=== PATIENT | female | born 1965 | race Caucasian/White ===

== ENCOUNTER 2016-04-24 02:00 | Emergency (ER) | payer OTHER ==
[2016-04-24 03:37] LABS: APPEARANCE,URINE SLIGHTLY-CLOUDY; BILIRUBIN,URINE NEGATIVE (NEGATIVE); GLUCOSE, URINE NEGATIVE (NEGATIVE); KETONES,URINE NEGATIVE (NEGATIVE); LEUKOCYTE ESTERASE,URINE LARGE (NEGATIVE); NITRITE,URINE NEGATIVE (NEGATIVE); PROTEIN,URINE NEGATIVE (NEGATIVE); URINE SPECIFIC GRAVITY 1.008
--- NOTE | 2016-04-24 04:36 | ER Document Report ---
ED GI/ - General Chief Complaint: Pain With Urination Stated Complaint: PAIN WITH URINATION Mode of Arrival: Ambulatory Information source: Patient Notes: 51-year-old female presents to the emergency department complaining of persistent UTI symptoms. Patient reports saw her primary care provider last week due to dysuria and lower back pain and was diagnosed with a UTI and prescribed course of Macrobid which she reports has been taking over the past week. States symptoms have not improved. Patient also complains of intermittently persistent right arm pain. 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 Denies recent injury, warmth or redness to hand/arm, hematuria, vaginal bleeding or discharge, nausea or vomiting. TRAVEL OUTSIDE OF THE [place] IN LAST 30 DAYS: No - HPI Patient complains to provider of: Dysuria Onset: Last week Timing/Duration: Persistent Quality of pain: Burning Severity at maximum: Moderate Severity in ED: Mild Pain Level: 2 Similar symptoms previously: Yes Recently seen / treated by doctor: Yes - Related Data Allergies/Adverse Reactions: Sulfa (Sulfonamide Antibiotics) Allergy (Verified 04/24/16 02:14) Past Medical History - General Information source: Patient - Social History Smoking Status: Never Smoker Chew tobacco use (# tins/day): No Frequency of alcohol use: None Drug Abuse: None Lives with: Family Family History: Reviewed & Not Pertinent Patient has suicidal ideation: No Patient has homicidal ideation: No - Medical History Medical History: Negative Renal/ Medical History: Denies: Hx Peritoneal Dialysis Surgical Hx: Negative - Immunizations Hx Diphtheria, Pertussis, Tetanus Vaccination: Yes Review of Systems - Review of Systems Constitutional: No symptoms reported EENT: No symptoms reported Cardiovascular: No symptoms reported Respiratory: No symptoms reported Gastrointestinal: No symptoms reported Genitourinary: See HPI Female Genitourinary: No symptoms reported Musculoskeletal: See HPI Skin: No symptoms reported Hematologic/Lymphatic: No symptoms reported Neurological/Psychological: No symptoms reported -: Yes All other systems reviewed and negative Physical Exam - Vital signs Vitals: Temp Pulse Resp BP Pulse Ox 98.0 F 92 16 131/83 H 97 04/24/16 02:07 04/24/16 02:07 04/24/16 02:07 04/24/16 02:07 04/24/16 02:07 Interpretation: Normal - General General appearance: Appears well, Alert In distress: None - HEENT Head: Normocephalic, Atraumatic Eyes: Normal Pupils: PERRL - Respiratory Respiratory status: No respiratory distress Chest status: Nontender Breath sounds: Normal Chest palpation: Normal - Cardiovascular Rhythm: Regular Heart sounds: Normal auscultation Murmur: No Pulses: Normal: Radial Normal capillary refill: Yes - Abdominal Inspection: Normal Distension: No distension Bowel sounds: Normal Tenderness: Nontender. No: Tender, McBurney's point, Rodriges's sign, Guarding, Rebound, Other Organomegaly: No organomegaly - Back Back: Normal, Nontender. No: Tender, Deformity/step-off, CVA tenderness, Vertebra tenderness, Scars, Scoliosis, Wounds, Other - Extremities General upper extremity: Normal inspection, Nontender, Normal color, Normal ROM , Normal strength, Normal temperature. No: Tender, Edema General lower extremity: Normal inspection, Nontender, Normal color, Normal ROM , Normal strength, Normal temperature, Normal weight bearing. No: Tender, Edema Arm: Normal, Nontender Elbow: Normal, Nontender Forearm: Normal, Nontender Wrist: Normal. No: Nontender, Tender, Abrasion, Axial load of thumb pain, Deformity, Dislocation, Ecchymosis, Instability, Laceration, Limited ROM, Navicular tenderness Hand: Normal. No: Nontender, Tender, Abrasion, Deformity, Dislocation, Ecchymosis, Instability, Laceration, Nail injury, Swelling, Tendon deficit, Other - Neurological Neuro grossly intact: Yes Cognition: Normal Orientation: AAOx4 [place] Coma Scale Eye Opening: Spontaneous Verena Coma Scale Verbal: Oriented Verena Coma Scale Motor: Obeys Commands [place] Coma Scale Total: 15 Speech: Normal Motor strength normal: LUE, RUE, LLE, RLE Sensory: Normal - Psychological Associated symptoms: Normal affect, Normal mood - Skin Skin Temperature: Warm Skin Moisture: Dry Skin Color: Normal Course - Re-evaluation Re-evalutation: 04/24/16 05:10 Patient hemodynamically stable, in no distress, afebrile, nontoxic, and appears well-hydrated. Large leukocyte Estrace and wbc's on UA. Urine culture obtained. Will prescribe course of cephalexin pending urine cultures. Patient appears stable for discharge and agrees with home care, follow-up with PCP, and ED return precautions. - Vital Signs Vital signs: Temp Pulse Resp BP Pulse Ox 97.7 F 86 16 138/55 H 99 04/24/16 04:59 04/24/16 04:59 04/24/16 04:59 04/24/16 04:59 04/24/16 04:59 - Laboratory Laboratory results interpreted by me: 04/24/16 03:17 Urine Urobilinogen 4.0 H Ur Leukocyte Esterase LARGE H Discharge - Discharge Clinical Impression: Overuse syndrome UTI (urinary tract infection) Qualifiers: Urinary tract infection type: site unspecified Hematuria presence: without hematuria Qualified Code(s): N39.0 - Urinary tract infection, site not specified Condition: Stable Disposition: HOME, SELF-CARE Instructions: Urinary Tract Infection ([facility]), Cephalexin ([facility]), Urinary Anesthetic Agent ([facility]), Anti-Inflammatory Medication ([facility]), Overuse Syndrome ( [facility]), Ice & Elevation ([facility]), Warm Packs ([facility]) Additional Instructions: A culture of your urine has been obtained. If bacterial growth is noted that requires a change in your prescribed antibiotic regimen you will be contacted within two days with instructions on treatment. If you do not receive a call, please call back for results. Drink plenty of fluids, at least 2 to 3 liters of water per day. Follow-up with your primary care provider in 1-2 days. Return to the Emergency Department for any worsening symptoms or concerns. Prescriptions: Cephalexin Monohydrate [Keflex 500 mg Capsule] 500 mg PO Q6H 7 Days Naproxen [Naprosyn 375 Mg Tablet] 375 mg PO BIDP PRN #10 tablet PRN Reason: Phenazopyridine HCl [Pyridium 200 mg Tablet] 200 mg PO BIDP PRN #10 tablet PRN Reason: Forms: Elevated Blood Pressure Referrals: INA KHAN MD [ACTIVE STAFF] - Follow up in 3-5 days
[2016-04-24 05:03] VITALS: BP 138/55
== END 2016-04-24 04:59 | disposition home or self-care (01) ==
LOC: ER 02:00
DX: N39.0 Urinary tract infection, site not specified (principal); M70.831 Other soft tissue disorders related to use, overuse and pressure, right forearm; Z88.2 Allergy status to sulfonamides
CPT/HCPCS: 81001; 87086; 87088; 87186; 99283

== ENCOUNTER → 2017-04-19 | Outpatient (CLI) | payer OTHER | LOC: LAB 18:30 | PROVIDERS: ATTEND Nurse Practitioner Acute Care | DX: R30.0 Dysuria (principal) | CPT/HCPCS: 87086 ==

== ENCOUNTER 2017-04-20 09:07 | Emergency (ER) | payer OTHER ==
[2017-04-20] MEDS ORDERED: RINGERS SOLUTION,LACTATED 1,000 ML IV ONE (10:19)
[2017-04-20] MEDS ORDERED: KETOROLAC TROMETHAMINE INJ/PF 30 MG/1 ML SDV IV ONE (10:20)
[2017-04-20] MEDS ORDERED: CEFTRIAXONE 1 GM/D5W RTU 1 GM/50 ML RTUPB IV ONE (10:20)
--- NOTE | 2017-04-20 10:20 | ER Document Report ---
ED General - General Chief Complaint: Pain All Over Stated Complaint: URINARY PROBLEMS Time Seen by Provider: 04/20/17 09:44 Notes: Patient states that over the last couple days she is felt generally ill. Body aches all over. Increase frequency of urination. Went to urgent care yesterday. Had already started on some Azo at home for possible UTI. Urinalysis was suspicious for UTI. Was started on Macrobid and Pyridium. Patient states that she continues to feel ill and not getting better. Describing chills and body aches all over. Weakness in her legs, also complaining of pain that radiates up into her jaw. No vomiting. States that she never gets sick and states that she does not feel right. Is concerned because father has history of severe coronary artery disease. TRAVEL OUTSIDE OF THE [place] IN LAST 30 DAYS: No - HPI Onset: Yesterday Onset/Duration: Worse - Related Data Allergies/Adverse Reactions: Sulfa (Sulfonamide Antibiotics) Allergy (Verified 04/24/16 02:14) Past Medical History - General Information source: Patient - Social History Smoking Status: Never Smoker Frequency of alcohol use: None Drug Abuse: None Lives with: Spouse/Significant other Family History: Reviewed & Not Pertinent - Past Medical History Cardiac Medical History: Reports: None Pulmonary Medical History: Reports: None Neurological Medical History: Reports: None Endocrine Medical History: Reports: None Renal/ Medical History: Reports: None. Denies: Hx Peritoneal Dialysis Malignancy Medical History: Reports: None GI Medical History: Reports: None Musculoskeltal Medical History: Reports None Skin Medical History: Reports None Psychiatric Medical History: Reports: None Infectious Medical History: Reports: None Surgical Hx: Other - , fibroid removal - Immunizations Hx Diphtheria, Pertussis, Tetanus Vaccination: Yes Review of Systems - Review of Systems Constitutional: Chills, Malaise, Weakness EENT: Other - Complaining of pain in the right jaw. denies: Eye pain, Ear pain , Mouth pain Cardiovascular: Heart racing. denies: Chest pain, Palpitations Respiratory: denies: Cough, Hurts to breathe, Wheezing Gastrointestinal: Abdominal pain. denies: Diarrhea, Nausea, Vomiting Genitourinary: Burning, Dysuria, Frequency, Urgency. denies: Discharge Female Genitourinary: denies: Vaginal discharge, Vaginal bleeding, Vaginal odor Musculoskeletal: Muscle pain. denies: Back pain, Joint pain, Muscle stiffness Skin: denies: Lesions, Lumps, Rash Hematologic/Lymphatic: denies: Anemia, Blood clots, Easy bleeding, Easy bruising Neurological/Psychological: denies: Confusion, Dementia, Depression, Anxiety, Hallucinations, Sensory change, Weakness, Seizure, Numbness Physical Exam - Vital signs Vitals: Temp Pulse Resp BP Pulse Ox 98.4 F 104 H 16 134/77 H 95 04/20/17 09:18 04/20/17 09:18 04/20/17 09:18 04/20/17 09:18 04/20/17 09:18 Interpretation: Tachycardic - General General appearance: Appears well, Alert - HEENT Head: Normocephalic, Atraumatic Eyes: Normal Pupils: PERRL - Respiratory Respiratory status: No respiratory distress Chest status: Nontender Breath sounds: Normal Chest palpation: Normal - Cardiovascular Rhythm: Tachycardia Heart sounds: Normal auscultation Murmur: No - Abdominal Inspection: Normal Distension: No distension Bowel sounds: Normal Tenderness: Nontender. No: Guarding, Rebound Organomegaly: No organomegaly - Back Back: Normal, Nontender - Extremities General upper extremity: Normal inspection, Nontender, Normal color, Normal ROM , Normal temperature General lower extremity: Normal inspection, Nontender, Normal color, Normal ROM , Normal temperature, Normal weight bearing. No: Jens's sign - Neurological Neuro grossly intact: Yes Cognition: Normal Orientation: AAOx4 [place] Coma Scale Eye Opening: Spontaneous [place] Coma Scale Verbal: Oriented [place] Coma Scale Motor: Obeys Commands Ve[place] Coma Scale Total: 15 Speech: Normal Motor strength normal: LUE, RUE, LLE, RLE Sensory: Normal - Psychological Associated symptoms: Normal affect, Normal mood - Skin Skin Temperature: Warm Skin Moisture: Dry Skin Color: Normal Course - Re-evaluation Re-evalutation: 04/20/17 10:27 This time based on her very broad presentation symptoms we will get some basic labs. Anytime someone is complaining of some pain in the jaw feel compelled to get an EKG and cardiac especially in females over the age of 50. Will give some IV fluids, Toradol and some Rocephin. Hopefully this will turn things around if not we will readdress. 04/20/17 12:03 Patient with evidence of UTI. Fluids, Toradol, Rocephin given. EKG obtained and troponin negative. At this time vital signs are normal. Patient feeling much better. Like to be able to discharge shortly. 04/20/17 12:11 04/20/17 10:54 04/20/17 10:54 MCV 85 fl (80-97) 04/20/17 10:54 MCH 27.8 pg (27.0-33.4) 04/20/17 10:54 MCHC 33.0 g/dL (32.0-36.0) 04/20/17 10:54 RDW 13.3 % (11.5-14.0) 04/20/17 10:54 Seg Neutrophils % Not Reportable 04/20/17 10:54 Lymphocytes % Not Reportable 04/20/17 10:54 Monocytes % Not Reportable 04/20/17 10:54 Eosinophils % Not Reportable 04/20/17 10:54 Basophils % Not Reportable 04/20/17 10:54 Absolute Neutrophils Not Reportable 04/20/17 10:54 Absolute Lymphocytes Not Reportable 04/20/17 10:54 Absolute Monocytes Not Reportable 04/20/17 10:54 Absolute Eosinophils Not Reportable 04/20/17 10:54 Absolute Basophils Not Reportable 04/20/17 10:54 Chloride 105 mmol/L (98-107) 04/20/17 10:54 Carbon Dioxide 25 mmol/L (22-30) 04/20/17 10:54 Anion Gap 11 (5-19) 04/20/17 10:54 Est GFR ( Amer) > 60 (>60) 04/20/17 10:54 Est GFR (Non-Af Amer) > 60 (>60) 04/20/17 10:54 Glucose 109 mg/dL (75-110) 04/20/17 10:54 Calcium 9.8 mg/dL (8.4-10.2) 04/20/17 10:54 Total Bilirubin 0.6 mg/dL (0.2-1.3) 04/20/17 10:54 AST 37 U/L (14-36) H 04/20/17 10:54 ALT 66 U/L (9-52) H 04/20/17 10:54 Alkaline Phosphatase 110 U/L (38-126) 04/20/17 10:54 Total Protein 6.4 g/dL (6.3-8.2) 04/20/17 10:54 Albumin 3.9 g/dL (3.5-5.0) 04/20/17 10:54 Urine Color YELLOW 04/20/17 09:51 Urine Appearance SLIGHTLY-CLOUDY 04/20/17 09:51 Urine pH 7.0 (5.0-9.0) 04/20/17 09:51 Ur Specific [place] 1.017 04/20/17 09:51 Urine Protein NEGATIVE mg/dL (NEGATIVE) 04/20/17 09:51 Urine Glucose (UA) NEGATIVE mg/dL (NEGATIVE) 04/20/17 09:51 Urine Ketones NEGATIVE mg/dL (NEGATIVE) 04/20/17 09:51 Urine Blood NEGATIVE (NEGATIVE) 04/20/17 09:51 Urine Nitrite NEGATIVE (NEGATIVE) 04/20/17 09:51 Ur Leukocyte Esterase MODERATE (NEGATIVE) H 04/20/17 09:51 Urine WBC (Auto) 27 /HPF 04/20/17 09:51 Urine RBC (Auto) 1 /HPF 04/20/17 09:51 04/20/17 10:54 Troponin I < 0.012 - Vital Signs Vital signs: Temp Pulse Resp BP Pulse Ox 98.4 F 104 H 16 134/77 H 95 04/20/17 09:18 04/20/17 09:18 04/20/17 09:18 04/20/17 09:18 04/20/17 09:18 - Laboratory Result Diagrams: 04/20/17 10:54 04/20/17 10:54 Laboratory results interpreted by me: 04/20/17 04/20/17 04/20/17 09:51 10:54 10:54 WBC 11.9 H Seg Neuts % (Manual) 91 H Band Neutrophils % 1 L Lymphocytes % (Manual) 4 L Monocytes % (Manual) 1 L Metamyelocytes % 1 H Abs Neuts (Manual) 11.1 H AST 37 H ALT 66 H Urine Urobilinogen 2.0 H Ur Leukocyte Esterase MODERATE H Urine Ascorbic Acid 40 H - EKG Interpretation by Wy EKG shows normal: [place], Intervals, QRS Complexes, ST-T Waves Rate: Tachycardia Discharge - Discharge Clinical Impression: Urinary tract infection Qualifiers: Urinary tract infection type: site unspecified Hematuria presence: without hematuria Qualified Code(s): N39.0 - Urinary tract infection, site not specified Condition: Good Disposition: HOME, SELF-CARE Instructions: Urinary Tract Infection ([facility]) Additional Instructions: In the event that your symptoms are getting worse over the next 12-24 hours please return to emergency department for repeat evaluation. Prescriptions: Cefdinir [Omnicef 300 mg Capsule] 1 cap PO BID 7 Days #14 capsule Forms: Return to Work
[2017-04-20 10:28] LABS: APPEARANCE,URINE SLIGHTLY-CLOUDY; BILIRUBIN,URINE NEGATIVE (NEGATIVE); COLOR,URINE YELLOW; GLUCOSE, URINE NEGATIVE (NEGATIVE); KETONES,URINE NEGATIVE (NEGATIVE); LEUKOCYTE ESTERASE,URINE MODERATE (NEGATIVE); NITRITE,URINE NEGATIVE (NEGATIVE); PROTEIN,URINE NEGATIVE (NEGATIVE); URINE SPECIFIC GRAVITY 1.017
[2017-04-20] MEDS ORDERED: CEFTRIAXONE INJ 1000 MG VIAL IV ONE (11:00)
[2017-04-20 11:13] LABS: HEMATOCRIT 38.7 % (36.0-47.0); HEMOGLOBIN 12.8 g/dL (12.0-15.5); MEAN CORPUSCULAR HEMOGLOBIN 27.8 pg (27.0-33.4); MEAN CORPUSCULAR VOLUME 85 fl (80-97); PLATELET COUNT 248 10^3/uL (150-450); RED BLOOD COUNT 4.58 10^6/uL (3.72-5.28); RED CELL DISTRIBUTION WIDTH 13.3 % (11.5-14.0); WHITE BLOOD COUNT 11.9 10^3/uL (4.0-10.5)
[2017-04-20 11:29] LABS: ALANINE AMINOTRANSFERASE 66 U/L (9-52); ALBUMIN 3.9 g/dL (3.5-5.0); ALKALINE PHOSPHATASE 110 U/L (38-126); ANION GAP 11 (5-19); ASPARTATE AMINO TRANSFERASE 37 U/L (14-36); BILIRUBIN,DIRECT 0.2 mg/dL (0.0-0.4); BILIRUBIN,TOTAL 0.6 mg/dL (0.2-1.3); BLOOD UREA NITROGEN 10 mg/dL (7-20); CALCIUM 9.8 mg/dL (8.4-10.2); CARBON DIOXIDE 25 mmol/L (22-30); CHLORIDE 105 mmol/L (98-107); GLUCOSE 109 mg/dL (75-110); POTASSIUM 4.1 mmol/L (3.6-5.0); SODIUM 140.5 mmol/L (137-145); TOTAL PROTEIN 6.4 g/dL (6.3-8.2)
[2017-04-20 11:35] LABS: ABSOLUTE LYMPHOCYTES# (MANUAL) 0.5 10^3/uL (0.5-4.7); ABSOLUTE MONOCYTES # (MANUAL) 0.1 10^3/uL (0.1-1.4); ABSOLUTE NEUTROPHILS# (MANUAL) 11.1 10^3/uL (1.7-8.2); BAND NEUTROPHILS % (MANUAL) 1 % (3-5); BASOPHILS % (MANUAL) 1 % (0-2); EOSINOPHILS % (MANUAL) 1 % (0-6); LYMPHOCYTES % (MANUAL) 4 % (13-45); METAMYELOCYTES % (MANUAL) 1 % (0); MONOCYTES % (MANUAL) 1 % (3-13); PLATELET COMMENT ADEQUATE; POLYCHROMASIA SLIGHT; SEGMENTED NEUTROPHILS % (MAN) 91 % (42-78); TOTAL CELLS COUNTED 100; TOXIC GRANULATION SLIGHT; TOXIC VACUOLATION PRESENT
[2017-04-20 12:44] VITALS: BP 139/68
--- NOTE | 2017-04-20 14:36 | EKG REPORT ---
SEVERITY:- ABNORMAL ECG - SINUS TACHYCARDIA BORDERLINE T ABNORMALITIES, ANT-LAT LEADS : Confirmed by: Ramu Torrez MD 20-Apr-2017 14:35:33
== END 2017-04-20 13:00 | disposition home or self-care (01) ==
LOC: ER 09:07
DX: N39.0 Urinary tract infection, site not specified (principal); M79.1 Myalgia; R53.81 Other malaise; Z88.2 Allergy status to sulfonamides
CPT/HCPCS: 93005; 99283; 96375; 96365; 96368; 36415; 87086; 85025; 87088; 80053; 81001; 84484; 93010; J1885; J0696; J7120

== ENCOUNTER 2019-05-13 23:13 | Emergency (ER) | payer OTHER ==
[2019-05-14] MEDS ORDERED: LIDOCAINE 2% VISCOUS SOLN 15 ML UDCUP PO ONE (00:04)
[2019-05-14] MEDS ORDERED: METOCLOPRAMIDE HCL ORAL SOLN 10 MG/10 ML UDCUP PO ONE (00:04)
[2019-05-14] MEDS ORDERED: MAG HYDROX/AL HYDROX/SIMETH SUSP 30 ML UDCUP PO ONE (00:04)
--- NOTE | 2019-05-14 00:26 | ER Document Report ---
ED General - General Stated Complaint: DIFFICULTY BREATHING Time Seen by Provider: 05/13/19 23:49 Notes: Patient is a 54-year-old female that comes to the emergency department for chief complaint of cough for the past 3 days, vague shortness of breath, chills and body aches. She also states that she has had frequent heartburn for the past 1.5 weeks and has generally felt rundown for 1.5 weeks. She states she had a maximum recorded temperature of 100.2 at home. She has had the influenza vaccine. She denies history of asthma, COPD, or any respiratory history. She denies any cardiac history or specific chest pain. She states that she wonders if the shortness of breath she is feeling is because of her bad heartburn. She denies abdominal pain, vomiting. She saw her primary care provider, had Carafate added to her omeprazole. She denies any significant improvement. She states she told her children how she was feeling and they told her to come in to get tested and checked out. She denies current shortness of breath. Patient denies any medications other than her omeprazole and Carafate. She denies any other medical history. TRAVEL OUTSIDE OF THE [place] IN LAST 30 DAYS: No - Related Data Allergies/Adverse Reactions: Sulfa (Sulfonamide Antibiotics) Allergy (Verified 04/24/16 02:14) Past Medical History - General Information source: Patient - Social History Smoking Status: Never Smoker Drug Abuse: None Lives with: Family Family History: Reviewed & Not Pertinent Endocrine Medical History: Denies: Hx Diabetes Mellitus Type 2 - "Borderline" but not treated Renal/ Medical History: Denies: Hx Peritoneal Dialysis GI Medical History: Reports: Hx Gastroesophageal Reflux Disease - Immunizations Immunizations up to date: Yes Hx Diphtheria, Pertussis, Tetanus Vaccination: Yes Review of Systems - Review of Systems Constitutional: See HPI EENT: No symptoms reported Cardiovascular: See HPI Respiratory: See HPI Gastrointestinal: See HPI Genitourinary: No symptoms reported Female Genitourinary: No symptoms reported Musculoskeletal: No symptoms reported Skin: No symptoms reported Hematologic/Lymphatic: No symptoms reported Neurological/Psychological: No symptoms reported Physical Exam - Vital signs Vitals: Resp Pulse Ox 15 95 05/13/19 23:39 05/13/19 23:39 - Notes Notes: GENERAL: Alert, interacts well. HEAD: Normocephalic, atraumatic. EYES: Pupils equal, round, and reactive to light. Extraocular movements intact. ENT: Oral mucosa moist, tongue midline. Oropharynx unremarkable. Airway patent. Nares patent, no nasal septal hematoma, TM's intact. NECK: Full range of motion. Supple. Trachea midline. LUNGS: Clear to auscultation bilaterally, no wheezes, rales, or rhonchi. No respiratory distress. HEART: Regular rate and rhythm. No murmur ABDOMEN: Soft, non-tender. Non-distended. Bowel sounds present in all 4 quadrants. EXTREMITIES: Moves all 4 extremities spontaneously. No edema, normal radial and dorsalis pedis pulses bilaterally. No cyanosis. BACK: no cervical, thoracic, lumbar midline tenderness. No saddle anesthesia, normal distal neurovascular exam. Moves all extremities in full range of motion. NEUROLOGICAL: Alert and oriented x3. Normal speech. Cranial nerves II through XII grossly intact. PSYCH: Speech is slightly anxiously but otherwise unremarkable. Cooperative and makes good eye contact SKIN: Warm, dry, normal turgor. No rashes or lesions noted. Course - Re-evaluation Re-evalutation: Patient is well-appearing on my evaluation. Vital signs are unremarkable including no tachycardia, fever, or hypoxia. Lungs are clear on exam. Chest x- ray is normal. EKG is normal. CBC shows borderline leukocytosis at 11.6 wi thout shift. Unremarkable otherwise. Chemistry nonspecific. Troponin negative. Lipase unremarkable. Symptoms have been going on for days. Patient is requesting to be tested for COVID-19. Based on her reported shortness of breath, cough, sore throat, generalized symptoms this was performed and is pending. I discussed quarantine for this patient states understanding and agreement. However because she has unremarkable work-up otherwise patient will require admission for this. Influenza negative. Patient was given GI cocktail. After this her symptoms did resolve including GERD, vague shortness of breath, and throat pain.. I have a strong suspicion that most of her symptoms are related to her GERD. Patient states she has had endoscopy recently and she was told she had significant gastritis/esophagitis. Patient was given Protonix. Discussed results with patient. Patient states she does have good follow-up, states she is ready to go home and feels much better. Discussed additional treatments, close follow-up, and return precautions at length. Patient states understanding and agreement. Stable at time of discharge. - Vital Signs Vital signs: Temp Pulse Resp BP Pulse Ox 98.2 F 22 H 133/84 H 94 05/14/19 02:06 05/14/19 02:01 05/14/19 02:01 05/14/19 02:01 - Laboratory Result Diagrams: 05/14/19 01:50 05/14/19 01:50 Laboratory results interpreted by me: 05/14/19 05/14/19 01:50 01:50 WBC 11.6 H Glucose 120 H ALT 47 H Alkaline Phosphatase 149 H - EKG Interpretation by Me Additional EKG results interpreted by me: EKG shows sinus rhythm at a rate of 80, QTC of 448, normal axis, no T wave inversions or ST segment changes in consecutive leads, machine reads as normal. Discharge - Discharge Clinical Impression: Cough, Sore throat GERD (gastroesophageal reflux disease) Qualifiers: Esophagitis presence: esophagitis presence not specified Qualified Code(s): K21.9 - Gastro-esophageal reflux disease without esophagitis Condition: Stable Disposition: HOME, SELF-CARE Additional Instructions: Your EKG, chest x-ray, and laboratory work-up in general are reassuring. You have been treated with IV Protonix, continue Carafate, Prilosec. I recommend you add famotidine, use Zofran for nausea, and use the syrup only if needed for cough (you can not drive or mix with sedating medication or alcohol while taking). Follow-up with primary care for additional evaluation and management. Because of your symptoms we do have COVID-19 (coronavirus) testing pending. Complete the 2 week isolation period. Return if you worsen including vomiting, spiking fevers, difficulty breathing, developing chest or abdominal pain, or any other concerning or worsening symptoms. Prescriptions: Hydrocodone Bit/Homatropine [Hycodan Syrup 5-1.5 mg/5 ml Ud Cup] 5 ml PO Q4HP PRN #120 ml PRN Reason: Famotidine [Pepcid 20 mg Tablet] 20 mg PO BID #20 tablet Ondansetron [Zofran Odt 4 mg Tablet] 1 - 2 tab PO Q4H PRN #15 tab.rapdis PRN Reason: For Nausea/Vomiting
--- NOTE | 2019-05-14 00:35 | RADIOLOGY REPORT (SQ) ---
XR CHEST 1 VIEW EXAM DATE: 05/14/2019 12:05 AM CDT HISTORY: Cough, fevers, SOB. COMPARISON: None. FINDINGS: The heart size is within normal limits. There is no pulmonary vascular congestion. No consolidation, pleural effusion, or pneumothorax is seen. IMPRESSION: No evidence of acute cardiopulmonary disease.
[2019-05-14 02:26] LABS: ABSOLUTE BASOPHILS # (AUTO) 0.1 10^3/uL (0.0-0.2); ABSOLUTE EOSINOPHILS # (AUTO) 0.2 10^3/uL (0.0-0.6); ABSOLUTE LYMPHOCYTES (AUTO) 3.1 10^3/uL (0.5-4.7); ABSOLUTE MONOCYTES (AUTO) 0.5 10^3/uL (0.1-1.4); ABSOLUTE NEUT (AUTO) 7.7 10^3/uL (1.7-8.2); BASOPHILS % (AUTO) 0.6 % (0-2); EOSINOPHILS % (AUTO) 1.4 % (0-6); HEMATOCRIT 42.3 % (36.0-47.0); HEMOGLOBIN 14.2 g/dL (12.0-15.5); LYMPHOCYTES % (AUTO) 26.9 % (13-45); MEAN CORPUSCULAR HEMOGLOBIN 27.7 pg (27.0-33.4); MEAN CORPUSCULAR HGB CONC 33.5 g/dL (32.0-36.0); MEAN CORPUSCULAR VOLUME 83 fl (80-97); MONOCYTES % (AUTO) 4.7 % (3-13); PLATELET COUNT 326 10^3/uL (150-450); RED BLOOD COUNT 5.12 10^6/uL (3.72-5.28); SEGMENTED NEUTROPHILS % (AUTO) 66.4 % (42-78); TOTAL CELLS COUNTED % (AUTO) 100 %; WHITE BLOOD COUNT 11.6 10^3/uL (4.0-10.5)
[2019-05-14 02:42] LABS: ALBUMIN 4.4 g/dL (3.5-5.0); ALKALINE PHOSPHATASE 149 U/L (38-126); ANION GAP 10 (5-19); ASPARTATE AMINO TRANSFERASE 30 U/L (14-36); BILIRUBIN,DIRECT 0.3 mg/dL (0.0-0.4); BILIRUBIN,TOTAL 0.7 mg/dL (0.2-1.3); BLOOD UREA NITROGEN 15 mg/dL (7-20); CALCIUM 9.9 mg/dL (8.4-10.2); CARBON DIOXIDE 26 mmol/L (22-30); CHLORIDE 102 mmol/L (98-107); GLUCOSE 120 mg/dL (75-110); POTASSIUM 3.8 mmol/L (3.6-5.0)
[2019-05-14 02:48] LABS: A TYPE INFLUENZA AG NEGATIVE (NEGATIVE); B INFLUENZA AG NEGATIVE (NEGATIVE)
[2019-05-14] MEDS ORDERED: PANTOPRAZOLE SODIUM 40 MG VIAL IV ONE (03:09)
[2019-05-14 05:25] VITALS: BP 131/67
--- NOTE | 2019-05-14 11:21 | EKG REPORT ---
SEVERITY:- BORDERLINE ECG - SINUS RHYTHM NONSPECIFIC LATERAL ST-T CHANGES : Confirmed by: Ramu Torrez MD 14-May-2019 11:20:13
== END 2019-05-14 05:26 | disposition home or self-care (01) ==
LOC: ER 23:13
DX: K21.9 Gastro-esophageal reflux disease without esophagitis (principal); J02.9 Acute pharyngitis, unspecified; R05 Cough; R06.02 Shortness of breath; M79.10 Myalgia, unspecified site; R12 Heartburn; Z88.2 Allergy status to sulfonamides; Z20.828 Contact with and (suspected) exposure to other viral communicable diseases
CPT/HCPCS: 93005; 99284; 36415; 83690; 85025; 87635; 80053; 84484; 87804; 71045; 93010; J3490; C9113

== ENCOUNTER 2019-12-18 15:20 | Emergency (ER) | payer OTHER ==
--- NOTE | 2019-12-18 15:43 | ER Document Report ---
ED Medical Screen (RME) - General Chief Complaint: Breathing Difficulty Stated Complaint: DIFFICULTY BREATHING Time Seen by Provider: 12/18/19 15:38 Mode of Arrival: Ambulatory Information source: Patient Notes: 54-year-old female presents to ED for complaint of being sick times a week. She states that she developed a sore throat about a week ago. She states she has had a runny nose and congestion intermittently a cough for a week short of breath worse today right upper back pain when she coughs and sometimes even not when she coughs sometimes it is very uncomfortable to lay down in the bed due to the back pain. She states she had hot cold flashes off and on. She states she did take her temperature throughout the week and has been 99 the low 100s but never higher than that. She has been taking some Tylenol and Motrin. Patient is alert oriented respirations regular nonlabored speaking in full sentences. She does not smoke drink or use any illicit drugs. The patient was evaluated during the global Covid 19 pandemic, and that diagnosis was suspected/considered upon their initial presentation. Their evaluation, treatment and testing was consistent with current guidelines for patients who present with complaints or symptoms that may be related to Covid 19. I have greeted and performed a rapid initial assessment of this patient. A comprehensive ED assessment and evaluation of the patient, analysis of test results and completion of medical decision making process will be conducted by an additional ED providers. TRAVEL OUTSIDE OF THE [place] IN LAST 30 DAYS: No - Related Data Allergies/Adverse Reactions: Sulfa (Sulfonamide Antibiotics) Allergy (Verified 04/24/16 02:14) Past Medical History - General Information source: Patient - Social History Cigarette use (# per day): No Frequency of alcohol use: None Drug Abuse: None - Past Medical History Cardiac Medical History: Reports: Hx Hypertension Pulmonary Medical History: Reports: None EENT Medical History: Reports: None Neurological Medical History: Reports: None Endocrine Medical History: Reports: Hx Diabetes Mellitus Type 2 - "Borderline" but not treated Renal/ Medical History: Reports: None Malignancy Medical History: Reports: None GI Medical History: Reports: Hx Gastroesophageal Reflux Disease Musculoskeltal Medical History: Reports Hx Musculoskeletal Trauma Skin Medical History: Reports None Psychiatric Medical History: Reports: None Traumatic Medical History: Reports: Hx Fractures - left wrist Past Surgical History: Reports: Hx Section, Hx Gynecologic Surgery - fibroids removed - Immunizations Immunizations up to date: Yes Hx Diphtheria, Pertussis, Tetanus Vaccination: Yes - 2019 Physical Exam - Vital signs Vitals: Temp Pulse Resp BP Pulse Ox 98.6 F 83 20 144/91 H 95 12/18/19 15:30 12/18/19 15:30 12/18/19 15:30 12/18/19 15:30 12/18/19 15:30 Course - Vital Signs Vital signs: Temp Pulse Resp BP Pulse Ox 98.6 F 83 20 144/91 H 95 12/18/19 15:30 12/18/19 15:30 12/18/19 15:30 12/18/19 15:30 12/18/19 15:30
--- NOTE | 2019-12-18 16:12 | ER Document Report ---
ED Respiratory Problem - General Chief Complaint: Breathing Difficulty Stated Complaint: DIFFICULTY BREATHING Time Seen by Provider: 12/18/19 15:38 Primary Care Provider: RA BOONE MD [Primary Care Provider] - Follow up tomorrow Mode of Arrival: Ambulatory Information source: Patient Notes: Patient presents complaining of sore throat and cough for the past week. Patient reports low-grade fever of 100. Patient states she had some diarrhea without any nausea or vomiting. Patient denies any urinary symptoms. Patient does complain of right lower posterior thoracic back pain off and on although states it is presently resolved at this time. Patient was concerned about possible pneumonia. TRAVEL OUTSIDE OF THE [place] IN LAST 30 DAYS: No - HPI Patient complains to provider of: Cough. No: Asthma, Short of breath Onset: Last week Duration: Continuous Quality of pain: Achy Pain Level: Denies Context: denies: Hx asthma, Hx CHF, Smoker Cough: Productive Sputum amount: Small Associated symptoms: Cough, Sore Throat. 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 Family History: Reviewed & Not Pertinent Pulmonary Medical History: Reports: None EENT Medical History: Reports: None Neurological Medical History: Reports: None Endocrine Medical History: Reports: Hx Diabetes Mellitus Type 2 - "Borderline" but not treated Renal/ Medical History: Reports: None Malignancy Medical History: Reports: None GI Medical History: Reports: Hx Gastroesophageal Reflux Disease Musculoskeletal Medical History: Reports Hx Musculoskeletal Trauma Skin Medical History: Reports None Psychiatric Medical History: Reports: None Traumatic Medical History: Reports: Hx Fractures - left wrist Past Surgical History: Reports: Hx Section, Hx Gynecologic Surgery - fibroids removed - Immunizations Immunizations up to date: Yes Hx Diphtheria, Pertussis, Tetanus Vaccination: Yes - 2019 Review of Systems - Review of Systems Constitutional: Fever - Low-grade, temperature of 100 earlier in the week EENT: Throat pain Cardiovascular: No symptoms reported. denies: Chest pain Respiratory: Cough. denies: Short of breath Gastrointestinal: Diarrhea. denies: Abdominal pain, Nausea, Vomiting Genitourinary: No symptoms reported. denies: Dysuria Female Genitourinary: No symptoms reported Musculoskeletal: Back pain - Right lower posterior thoracic back pain Skin: No symptoms reported Hematologic/Lymphatic: No symptoms reported Neurological/Psychological: No symptoms reported Physical Exam - Vital signs Vitals: Temp Pulse Resp BP Pulse Ox 98.6 F 83 20 144/91 H 95 12/18/19 15:30 12/18/19 15:30 12/18/19 15:30 12/18/19 15:30 12/18/19 15:30 - Notes Notes: PHYSICAL EXAMINATION: GENERAL: Well-appearing and in no acute distress. HEAD: Atraumatic, normocephalic. EYES: sclera anicteric, conjunctiva are normal. ENT: No tonsillar exudates, nares patent. Moist mucous membranes. NECK: Normal range of motion, supple without lymphadenopathy LUNGS: CTAB and equal. No wheezes rales or rhonchi. HEART: Regular rate and rhythm without murmurs ABDOMEN: Soft, nontender, normal bowel sounds, no guarding. EXTREMITIES: Normal range of motion, no pitting edema. No cyanosis. BACK: No CVA tenderness NEUROLOGICAL: Cranial nerves grossly intact. Normal speech. PSYCH: Normal mood, normal affect. SKIN: Warm, Dry, normal turgor, no rashes or lesions noted Course - Re-evaluation Re-evalutation: 12/18/19 18:[address] Nguyen regarding patient presentation and's x-ray report. He advises treating patient with doxycycline for her respiratory complaints and having her follow-up on an outpatient basis with her doctor to get scheduled for an outpatient CT for further evaluation of pulmonary nodule noted on x-ray. Patient was given a copy of her x-ray report and encouraged to see her primary doctor for follow-up of her x-ray to include an outpatient CT scan of the chest to evaluate pulmonary nodule. Patient also encouraged to have her doctor recheck her liver function test that they are mildly elevated today. Patient respirations unlabored, patient otherwise nontoxic in appearance. Good return precautions discussed with patient. Patient verbalized understanding and is agreeable with discharge plan of care. - Vital Signs Vital signs: Temp Pulse Resp BP Pulse Ox 98.3 F 86 18 145/83 H 96 12/18/19 18:01 12/18/19 18:01 12/18/19 18:01 12/18/19 18:01 12/18/19 18:01 - Laboratory Result Diagrams: 12/18/19 16:35 12/18/19 16:35 Laboratory results interpreted by me: 12/18/19 12/18/19 12/18/19 16:35 16:35 16:35 RDW 14.2 H BUN 6 L AST 49 H ALT 70 H Alkaline Phosphatase 156 H Urine Urobilinogen 2.0 H Ur Leukocyte Esterase MODERATE H Urine Ascorbic Acid 40 H Labs- All tests 24 hr 12/18/19 12/18/19 12/18/19 16:33 16:35 16:35 WBC 7.5 RBC 5.01 Hgb 13.9 Hct 41.1 MCV 82 MCH 27.7 MCHC 33.7 RDW 14.2 H Plt Count 267 Lymph % (Auto) 31.9 Mckenzie % (Auto) 7.2 Eos % (Auto) 2.6 Baso % (Auto) 0.7 Absolute Neuts (auto) 4.3 Absolute Lymphs (auto) 2.4 Absolute Monos (auto) 0.5 Absolute Eos (auto) 0.2 Absolute Basos (auto) 0.1 Seg Neutrophils % 57.6 Sodium 138.5 Potassium 4.2 Chloride 106 Carbon Dioxide 25 Anion Gap 8 BUN 6 L Creatinine 0.57 Est GFR ( Amer) > 60 Est GFR (MDRD) Non-Af > 60 Glucose 82 Calcium 9.2 Total Bilirubin 0.5 Direct Bilirubin 0.2 Neonat Total Bilirubin Not Reportable Neonat Direct Bilirubin Not Reportable Neonat Indirect Bili Not Reportable AST 49 H ALT 70 H Alkaline Phosphatase 156 H Total Protein 7.0 Albumin 4.1 Urine Color Urine Appearance Urine pH Ur Specific Olin Urine Protein Urine Glucose (UA) Urine Ketones Urine Blood Urine Nitrite Urine Bilirubin Urine Urobilinogen Ur Leukocyte Esterase Urine WBC (Auto) Urine RBC (Auto) Squamous Epi Cells Auto Urine Mucus (Auto) Urine Ascorbic Acid COVID-19 Source See comment Influenza A (Rapid) Influenza B (Rapid) Group A Strep Rapid 12/18/19 12/18/19 12/18/19 16:35 16:35 16:35 WBC RBC Hgb Hct MCV MCH MCHC RDW Plt Count Lymph % (Auto) Mckenzie % (Auto) Eos % (Auto) Baso % (Auto) Absolute Neuts (auto) Absolute Lymphs (auto) Absolute Monos (auto) Absolute Eos (auto) Absolute Basos (auto) Seg Neutrophils % Sodium Potassium Chloride Carbon Dioxide Anion Gap BUN Creatinine Est GFR ( Amer) Est GFR (MDRD) Non-Af Glucose Calcium Total Bilirubin Direct Bilirubin Neonat Total Bilirubin Neonat Direct Bilirubin Neonat Indirect Bili AST ALT Alkaline Phosphatase Total Protein Albumin Urine Color YELLOW Urine Appearance CLEAR Urine pH 5.0 Ur Specific [place]lin 1.013 Urine Protein NEGATIVE Urine Glucose (UA) NEGATIVE Urine Ketones NEGATIVE Urine Blood NEGATIVE Urine Nitrite NEGATIVE Urine Bilirubin NEGATIVE Urine Urobilinogen 2.0 H Ur Leukocyte Esterase MODERATE H Urine WBC (Auto) 2 Urine RBC (Auto) 1 Squamous Epi Cells Auto 2 Urine Mucus (Auto) RARE Urine Ascorbic Acid 40 H COVID-19 Source Influenza A (Rapid) NEGATIVE Influenza B (Rapid) NEGATIVE Group A Strep Rapid NEGATIVE - Diagnostic Test Radiology reviewed: Image reviewed, Reports reviewed Discharge - Discharge Clinical Impression: Pulmonary nodule, Cough, Encounter for screening laboratory testing for COVID- 19 virus, Elevated liver function tests Condition: Stable Disposition: HOME, SELF-CARE Instructions: COVID-19 Guidance for Persons Under Investigation, Doxycycline ([facility]), Growth or Mass, Pending Workup ([facility]), Inhaled Bronchodilators ([facility]), Liver Function Abnormality ([facility]) Additional Instructions: Return immediately for any new or worsening symptoms Followup with your primary care provider, call tomorrow to make a followup appo intment Your liver function tests were mildly elevated today, your primary doctor can recheck this finding for you. Your x-ray showed a nodule on your chest film. It is advised that you have an outpatient CT scan to further evaluate this finding. Contact your primary doctor tomorrow to make a follow-up appointment for additional testing. Prescriptions: Doxycycline Hyclate 100 mg PO BID #20 tablet. Albuterol Sulfate [Proair Hfa Inhalation Aerosol 8.5 gm Mdi] 2 puff IH Q4 PRN #1 mdi PRN Reason: Benzonatate [Tessalon Perles 100 mg Capsule] 100 mg PO ASDIR PRN #30 capsule PRN Reason: Referrals: RA BOONE MD [Primary Care Provider] - Follow up tomorrow
--- NOTE | 2019-12-18 16:42 | RADIOLOGY REPORT (SQ) ---
EXAM DESCRIPTION: CHEST SINGLE VIEW IMAGES COMPLETED DATE/TIME: 12/18/2019 4:23 pm REASON FOR STUDY: #1 SYNCOPE COMPARISON: 05/14/2019 EXAM PARAMETERS: NUMBER OF VIEWS: One view. TECHNIQUE: Single frontal radiographic view of the chest acquired. RADIATION DOSE: NA LIMITATIONS: None. FINDINGS: LUNGS AND PLEURA: No infiltrate or effusion. Cannot exclude a 12 mm pulmonary nodule in t he left lower lung field. MEDIASTINUM AND HILAR STRUCTURES: No masses. Contour normal. HEART AND VASCULAR STRUCTURES: Heart normal in size. Normal vasculature. BONES: No acute findings. HARDWARE: None in the chest. OTHER: No other significant finding. IMPRESSION: Cannot exclude a small left pulmonary nodule. Recommend CT scan. TECHNICAL DOCUMENTATION: JOB ID: [id number] [email or web address]- All Rights Reserved Reading location - IP/workstation name: [email or web address]
[2019-12-18 17:01] LABS: ABSOLUTE BASOPHILS # (AUTO) 0.1 10^3/uL (0.0-0.2); ABSOLUTE EOSINOPHILS # (AUTO) 0.2 10^3/uL (0.0-0.6); ABSOLUTE LYMPHOCYTES (AUTO) 2.4 10^3/uL (0.5-4.7); ABSOLUTE MONOCYTES (AUTO) 0.5 10^3/uL (0.1-1.4); ABSOLUTE NEUT (AUTO) 4.3 10^3/uL (1.7-8.2); BASOPHILS % (AUTO) 0.7 % (0-2); EOSINOPHILS % (AUTO) 2.6 % (0-6); HEMATOCRIT 41.1 % (36.0-47.0); HEMOGLOBIN 13.9 g/dL (12.0-15.5); LYMPHOCYTES % (AUTO) 31.9 % (13-45); MEAN CORPUSCULAR HEMOGLOBIN 27.7 pg (27.0-33.4); MEAN CORPUSCULAR HGB CONC 33.7 g/dL (32.0-36.0); MEAN CORPUSCULAR VOLUME 82 fl (80-97); MONOCYTES % (AUTO) 7.2 % (3-13); PLATELET COUNT 267 10^3/uL (150-450); RED BLOOD COUNT 5.01 10^6/uL (3.72-5.28); RED CELL DISTRIBUTION WIDTH 14.2 % (11.5-14.0); SEGMENTED NEUTROPHILS % (AUTO) 57.6 % (42-78); TOTAL CELLS COUNTED % (AUTO) 100 %; WHITE BLOOD COUNT 7.5 10^3/uL (4.0-10.5)
[2019-12-18 17:02] LABS: APPEARANCE,URINE CLEAR; BILIRUBIN,URINE NEGATIVE (NEGATIVE); COLOR,URINE YELLOW; GLUCOSE, URINE NEGATIVE (NEGATIVE); KETONES,URINE NEGATIVE (NEGATIVE); LEUKOCYTE ESTERASE,URINE MODERATE (NEGATIVE); NITRITE,URINE NEGATIVE (NEGATIVE); PROTEIN,URINE NEGATIVE (NEGATIVE); URINE SPECIFIC GRAVITY 1.013
[2019-12-18 17:16] LABS: A TYPE INFLUENZA AG NEGATIVE (NEGATIVE); B INFLUENZA AG NEGATIVE (NEGATIVE)
[2019-12-18 17:21] LABS: ALBUMIN 4.1 g/dL (3.5-5.0); ALKALINE PHOSPHATASE 156 U/L (38-126); ANION GAP 8 (5-19); ASPARTATE AMINO TRANSFERASE 49 U/L (14-36); BILIRUBIN,DIRECT 0.2 mg/dL (0.0-0.4); BILIRUBIN,TOTAL 0.5 mg/dL (0.2-1.3); BLOOD UREA NITROGEN 6 mg/dL (7-20); CALCIUM 9.2 mg/dL (8.4-10.2); CARBON DIOXIDE 25 mmol/L (22-30); CHLORIDE 106 mmol/L (98-107); GLUCOSE 82 mg/dL (75-110); POTASSIUM 4.2 mmol/L (3.6-5.0)
[2019-12-18 18:02] VITALS: BP 145/83
== END 2019-12-18 18:15 | disposition home or self-care (01) ==
LOC: ER 15:20
DX: R05 Cough (principal); J02.9 Acute pharyngitis, unspecified; R19.7 Diarrhea, unspecified; M54.9 Dorsalgia, unspecified; R50.9 Fever, unspecified; R79.89 Other specified abnormal findings of blood chemistry; R91.1 Solitary pulmonary nodule; Z88.2 Allergy status to sulfonamides; Z20.828 Contact with and (suspected) exposure to other viral communicable diseases
CPT/HCPCS: 99284; 36415; 87070; 87880; 85025; 87635; 80053; 81001; 87804; 71045; C9803